=== PATIENT | male | born 1955 | race Caucasian/White ===

== ENCOUNTER → 2019-01-11 13:40 | Outpatient (CLI) | payer BC, SELFPAY ==
--- NOTE | 2019-01-11 13:46 | US_ITS ---
US kidney retroperitoneal comp HISTORY: ITS.REASON: GROSS HEMATURIA ORDERING PHYSICIAN: Dana Hernandez PATIENT AGE: 63 years Comparison: None FINDINGS: The right kidney is 12 x 7 x 11 cm. No hydronephrosis. Benign-appearing 16 mm cyst is present in the mid polar region. Unremarkable echogenicity. The left testicle is 13 x 6 x 7 cm. Unremarkable echogenicity with no evidence of hydronephrosis or mass. IMPRESSION: 1. No hydronephrosis. 2. Small right renal cyst
== END ==
PROVIDERS: PCP Nurse Practitioner; Referring Provider Nurse Practitioner; Visit Provider Nurse Practitioner
DX: R31.0 Gross hematuria (principal)
CPT/HCPCS: 76770

== ENCOUNTER 2020-12-12 10:47 | Emergency (ER) | payer BC, SELFPAY ==
[2020-12-12 11:15] VITALS: BP 130/80; PULSE 74; RESP 16; TEMP 37.1; O2SAT 100; BMI 32.1
--- NOTE | 2020-12-12 11:41 | HMH.EDUTC ---
[facility] [place] Impression: COVID-19 Disposition: Home, Self-Care Condition on Discharge: Good Instructions: Preventing the Spread of Coronavirus Discharge Instructions Additional Instructions: Drink plenty of fluids. Take tylenol for pain or fever. Return if you begin to have difficulty breathing. Follow up with your regular doctor. GO TO THE ER FOR ANY WORSENING SYMPTOMS Referrals: Yessica Stone MD [Primary Care Provider] - Time of Disposition: 11:44 Medical Decision Making - Medical Records Medical records reviewed: No: I reviewed the patient's medical records. - Samuel Inquiry Pt receiving controlled substance: No Vital Signs: 12/12/20 11:15 12/12/20 11:48 Temperature 98.7 F 98.7 F Temperature Source Oral Pulse Rate 74 Pulse Rate [Right Brachial] 74 Respiratory Rate 16 16 Blood Pressure 130/80 Blood Pressure [Right Arm] 130/80 Blood Pressure Mean [Right Arm] 96 Blood Pressure Source [Right Arm] Automatic Cuff Blood Pressure Position [Right Arm] Sitting 02 Sat by Pulse Oximetry 100 Oxygen Delivery Method Room Air [facility] [place] - General Stated complaint: covid positive Time Seen by Provider: 12/12/20 11:41 Mode of Arrival: Ambulatory Source of Information: Patient Limitations: No Limitations Description of Symptoms (Recalled from Triage Doc. by RN): PATIENT TESTED POSITIVE FOR COVID ON 11/24/20. REQUESTING RE-TEST HEENT Symptoms (Recalled from RN notes): No Resp Symptoms (Recalled from RN notes): No Skin Symptoms (Recalled from RN notes): No MS Symptoms (Recalled from RN notes): No Functional Status (Recalled from RN notes): WNL - History of Present Illness Provider Complaint: He is here needing to be retested for covid-19. He has been positive. He needs a negative test to go back to work - Related Data Home Medications Medication Instructions Recorded Confirmed blood-glucose meter See Dose Instructions .ROUTE 09/28/19 10/05/20 .MEDSUPPLY #1 each diphenhydramine HCl 25 mg tablet 25 mg PO QHS PRN 09/28/19 10/05/20 fenofibrate micronized 134 mg 134 mg PO DAILY 09/28/19 10/05/20 capsule hydrocortisone acetate 1 % topical 1 applic TOPICAL BID 09/28/19 10/05/20 ointment metformin 500 mg tablet 500 mg PO BID 09/28/19 10/05/20 methylprednisolone 4 mg tablet 4 mg PO DAILY 09/28/19 10/05/20 semaglutide 0.25 mg SQ QWEEK 09/28/19 10/05/20 simvastatin 40 mg tablet 40 mg PO QPM 09/28/19 10/05/20 telmisartan 80 mg tablet 80 mg PO DAILY 09/28/19 10/05/20 Allergies Allergy/AdvReac Type Severity Reaction Status Date / Time No Known Allergies Allergy Verified 10/05/20 13:43 - Worker's Comp Is this a Worker's Comp case?: No [facility] History - Hepatitis A Screen Drug use history?: No High risk sexual behaviors?: No History of sexually transmitted infection?: No Currently employed?: No Childcare worker?: No Do you have indoor plumbing?: Yes Do you have electricity?: Yes Attestation statement:: This patient has been screened for Hepatitis A risk factors. I have reviewed the patient's past medical history: Yes Medical History: Reports:: Diabetes Mellitus Type 2, Hyperlipidemia, Hypertension Other Surgeries: Yes: No Previous Surgery, Colonoscopy Amputation: No Fractures: No - Social History Smoking Status: Never smoker Alcohol Intake: never Alcohol Intake Frequency:: other Substance Use Type: denies use Occupational Status: employed Housing: house Household Members: spouse Family Hx:: No significant family history ROS Obtained: Yes All systems reviewed & no additional complaints - Constitutional Constitutional: Reports system reviewed and no additional complaints, except as docu - Eyes Eyes: Reports system reviewed and no additional complaints, except as docu - ENT Ears, Nose, Mouth, and Throat: Reports system reviewed and no additional complaints, except as docu - Cardiovascular Cardiovascular: Reports system reviewed and no addit
[2020-12-12 11:48] VITALS: BP 130/80; PULSE 74; RESP 16; TEMP 37.1; O2SAT 100
== END 2020-12-12 11:55 | disposition home or self-care (01) ==
PROVIDERS: Emergency Provider Nurse Practitioner Family; PCP Family Medicine
DX: Z86.16 Personal history of COVID-19 (principal)
CPT/HCPCS: 99202; G0463; U0003

== ENCOUNTER → 2021-10-15 13:15 | Outpatient (CLI) | payer BC, SELFPAY ==
[2021-10-17 08:52] LABS: PSA, Free 1.34 ng/mL; Prostate Specific Ag 4.3 ng/mL (0.0-4.0)
== END ==
PROVIDERS: Visit Provider Urology
DX: R97.20 Elevated prostate specific antigen [PSA] (principal)
CPT/HCPCS: 36415; 84153; 84154

== ENCOUNTER → 2021-11-11 11:00 | Outpatient (CLI) | payer BC, SELFPAY | PROVIDERS: PCP Family Medicine; Visit Provider Nurse Practitioner | DX: U07.1 COVID-19 (principal) | CPT/HCPCS: C9803; U0003; U0005 ==

== ENCOUNTER → 2022-10-28 08:27 | Outpatient (CLI) | payer BC, SELFPAY ==
[2022-10-28 09:50] LABS: Prostate Specific Ag Screen 4.5 ng/ml (0.0-4.0)
== END ==
PROVIDERS: PCP Family Medicine; Visit Provider Urology
DX: R97.20 Elevated prostate specific antigen [PSA] (principal)
CPT/HCPCS: 36415; G0103

== ENCOUNTER 2024-11-03 10:12 | Outpatient (CLI) | payer MEDICARE, OTHER, SELFPAY ==
[2024-11-04 10:11] LABS: PSA, Free 1.77 ng/mL; Prostate Specific Ag 5.9 ng/mL (0.0-4.0)
== END 2024-11-03 23:59 | disposition home or self-care (01) ==
LOC: LAB 10:17
PROVIDERS: PCP Family Medicine; Visit Provider Urology
DX: R97.20 Elevated prostate specific antigen [PSA] (principal)
CPT/HCPCS: 36415; 84153; 84154